=== PATIENT | female | born 1950 | race Caucasian/White ===

== ENCOUNTER 2025-03-16 08:01 | Outpatient (CLI) | payer MEDICARE ==
[2025-03-16 08:34] LABS: Estimated GFR - POC 91.0
[2025-03-16] MEDS ORDERED: Iopamidol 370 76% 100 ML VIAL ONE (12:58)
== END 2025-03-16 08:02 | disposition home or self-care (01) ==
LOC: CT 08:01
PROVIDERS: ATTEND Physician Assistant Medical
DX: R10.31 Right lower quadrant pain (principal); R10.13 Epigastric pain; R11.0 Nausea; R09.89 Other specified symptoms and signs involving the circulatory and respiratory systems; K59.00 Constipation, unspecified; K57.30 Diverticulosis of large intestine without perforation or abscess without bleeding
CPT/HCPCS: 36415; 74177; 82565; Q9967